=== PATIENT | female | born 2000 | race Caucasian/White ===

== ENCOUNTER 2023-01-18 10:41 | Emergency (ER) | payer BC, SELFPAY ==
[2023-01-18 10:50] VITALS: BP 138/86; PULSE 98; RESP 22; TEMP 36.8; O2SAT 100; BMI 44.8
--- NOTE | 2023-01-18 11:31 | EXP.UTC ---
Discharge Plan Disposition Patient Disposition: Home, Self-Care Condition: Good Prescriptions Prescriptions: New azithromycin [Zithromax Z-Ta] 250 mg tablet See Rx Instructions .ROUTE .COMPLEX 5 Days Qty: 6 0RF Rx Instructions: For 250 mg dose pack: take 500 mg today (day 1), then 250 mg for 4 days (days 2-5) methylprednisolone [Medrol (Ta)] 4 mg tablets,dose pack See Rx Instructions .Route .COMPLEX 6 Days Qty: 21 0RF Rx Instructions: taper pack; albuterol sulfate [Proventil HFA] 90 mcg/actuation HFA aerosol inhaler 1 - 2 inh inhalation Q6H PRN (Reason: shortness of breath or wheezing) Qty: 8.5 0RF No Action cetirizine-pseudoephedrine [Zyrtec-D] 5-120 mg Tablet Extended Release 12 Hr 1 tab PO DAILY Referrals Follow up/Referrals: Provider,Referral, MD [Primary Care Provider] - See instructions Activity Restrictions/Add. Instructions Additional Instructions/Restrictions: Start antibiotic today. Be sure to complete entire prescription even if feeling better Monitor temp. Tylenol every 4 hours as needed and / or ibuprofen every 6 hours as needed ( As long as your primary care physician has told you that it ok to take both. For fever/aches/pains ER if no less than 101 despite Tylenol or Motrin Humidifier/vaporizer or hot steamy shower Inhaler every 4-6 hours as needed like we discussed. If unsure how to use it, ask pharmacist to demonstrate how. Should help open airways and improve cough, wheezing, and shortness of breath *Start steroid today. Helps with inflammation therefore, cough and wheezing. Follow directions on the package. Reviewed side effects. Patient reports taking them before. Follow up IMMEDIATELY for new or worsening of symptoms OR no noticeable improvement over the next 48-72 hours. 911 immediately for any life threatening symptoms such as chest pain or difficulty breathing Clinical Impressions Clinical Impression: Sinusitis, Bronchitis Instructions Patient Instructions: DI for Sinusitis, Sinusitis, Acute Bronchitis Discharge ED Provider: Mary Pacheco [facility] [place] HPI General Stated complaint: Chest congestion, SOA Mode of Arrival: Ambulatory Source of Information: Patient Limitations: No Limitations Time Seen by Provider: 01/18/23 11:31 Description of Symptoms (Recalled from Triage Doc. by RN): PATIENT C/O SOA AND CHEST CONGESTION SINCE YESTERDAY HEENT Symptoms (Recalled from RN notes): No Resp Symptoms (Recalled from RN notes): Yes Skin Symptoms (Recalled from RN notes): No MS Symptoms (Recalled from RN notes): No Functional Status (Recalled from RN notes): WNL History of Present Illness Provider Complaint: Patient states that she has been having sinus pain and pressure for a couple weeks thought it was just allergies but now it is trying to move into her chest States that when she lays down she has drainage in the back of her throat and makes her cough States that at times she feels a little SOA after coughing like she cant get a good breath States that when she was younger she had an inhaler and not had to have it in awhile Related Data Home Medications Medication Instructions Recorded Confirmed cetirizine 5 mg-pseudoephedrine ER 1 tab PO DAILY Allergy symptoms 01/18/23 01/18/23 120 mg tablet,extended release,12hr (Zyrtec-D) Previous Rx's Medication Instructions Recorded albuterol sulfate 90 mcg/actuation 1 - 2 inh inhalation Q6H PRN 01/18/23 aerosol inhaler (Proventil HFA) shortness of breath or wheezing #8.5 grams azithromycin 250 mg tablet See Rx Instructions PO .COMPLEX 5 01/18/23 (Zithromax Z-Ta) days #6 tabs methylprednisolone 4 mg tablets in See Rx Instructions .Route 01/18/23 a dose pack (Medrol (Ta)) .COMPLEX 6 days #21 tabs Allergies Allergy/AdvReac Type Severity Reaction Status Date / Time No Known Allergies Allergy Verified 01/18/23 11:07 Worker's Comp Is t
[2023-01-18 11:43] LABS: UTC Pregnancy Test, Urine Negative (Negative)
[2023-01-18 11:48] VITALS: BP 138/86; PULSE 98; RESP 22; TEMP 36.8; O2SAT 100
== END 2023-01-18 11:53 | disposition home or self-care (01) ==
PROVIDERS: Emergency Provider Nurse Practitioner
DX: J01.90 Acute sinusitis, unspecified (principal); J20.9 Acute bronchitis, unspecified
CPT/HCPCS: 81025; 99204; 99212; G0463

== ENCOUNTER 2023-05-25 19:06 | Emergency (ER) | payer BC, SELFPAY ==
[2023-05-25 19:07] VITALS: BP 151/98; PULSE 90; RESP 18; TEMP 37; O2SAT 100; BMI 41.1
[2023-05-25 20:26] VITALS: BP 113/74; PULSE 97; O2SAT 100
[2023-05-25 21:18] LABS: Microscopic, Urine URINE MICROSCOPIC (MICROSCOPIC)
[2023-05-25 21:20] LABS: Appearance,Urine CLEAR (Clear); Bilirubin,Urine Negative (Negative); Blood, Urine 3+ (Negative); Color,Urine YELLOW (Yellow); Glucose,Urine (UA) Negative (Negative); Ketones,Urine Negative (Negative); Leukocyte Esterase,Urine Negative (Negative); Nitrate,Urine Negative (Negative); PH,Urine 5.5 (5.0-8.5); Protein,Urine Negative (Negative); Specific Gravity, Urine >= 1.030 (1.005-1.030); Urobilinogen,Urine 0.2 EU/dl (0.2)
[2023-05-25 21:32] LABS: Basophils # 0.1 K/mm3 (0-0.2); Basophils % 0.6 % (0.1-2.0); Eosinophils # 0.6 K/mm3 (0.0-0.4); Eosinophils % 5.1 % (0.1-12.0); Hematocrit 42.5 % (37.0-47.0); Hemoglobin 13.8 g/dL (12.2-16.2); Lymphocytes # 3.1 K/mm3 (0.7-4.5); Lymphocytes % 24.6 % (10-50); Mean Corpuscular HGB Conc 32.5 g/dL (31.8-35.4); Mean Corpuscular Hemoglobin 27.8 pg (27.0-31.2); Mean Corpuscular Volume 85.3 fl (81-99); Monocytes # 0.4 K/mm3 (0.1-1.0); Monocytes % 2.7 % (1.7-9.3); Neutrophils # 8.5 K/mm3 (1.8-7.8); Neutrophils % 66.9 % (37.0-80.0); Platelet Count 315 K/mm3 (142-424); Red Blood Count 4.98 M/mm3 (4.20-5.40); Red Cell Distribution Width 14.1 % (11.5-17.5); White Blood Count 12.6 K/mm3 (4.8-10.8)
[2023-05-25 21:38] LABS: RBC,Urine 20-50 #/hpf (0-3)
[2023-05-25 21:39] LABS: Bacteria,Urine Trace /lpf; Mucus,Urine Trace /lpf; WBC,Urine Occasional #/hpf (0-3)
[2023-05-25 21:42] LABS: Alanine Aminotransferase 37 U/L (12-78); Albumin Level 4.5 g/dl (3.5-5.0); Albumin/Globulin Ratio 1.4 (1.1-1.8); Alkaline Phosphatase 43 U/L (38-126); Anion Gap 11.7 mEq/L (5-15); Aspartate Amino Transferase 35 U/L (14-36); Bilirubin,Total 0.3 mg/dl (0.2-1.3); Blood Urea Nitrogen 7 mg/dl (7-17); Carbon Dioxide 24 mmol/L (22.0-30.0); Chloride 106 mmol/L (98-107); Creatinine Clearance Estimated 251 mL/min (50-200); Estimated Glomerular Filt Rate 124 ml/min (>60); GFR (African American) 150 ML/MIN (>60); Globulin 3.3 g/dL (1.3-3.2); Glucose 95 mg/dl (74-100); Potassium 3.7 mmoL/L (3.5-5.1); Sodium 138 mmol/L (136-145); Total Protein,Serum 7.8 g/dl (6.3-8.2)
[2023-05-25 22:00] LABS: HCG,Quantitative 496 mIU/ml (0-5.42)
[2023-05-25 22:14] LABS: Thyroid Stimulating Hormone 2.88 uIU/mL (0.465-4.68)
--- NOTE | 2023-05-25 23:19 | PC.NURSE ---
[facility] hospital[facility] at [facility] accepted pt. waiting on room assignment
--- NOTE | 2023-05-25 23:28 | PC.NURSE ---
made round nothing need
[2023-05-25 23:52] VITALS: BP 142/87; PULSE 100; RESP 18; TEMP 36.7; O2SAT 99
--- NOTE | 2023-05-25 23:53 | PC.NURSE ---
Patient states she started bleeding it was light pink, she called her OBGYN at [facility] who informed patient if the bleeding got redder in nature to come to local ER, patient states Sunday night it started getting redder, scant amounts only spotting at the moment. Patient stated she has an HCG with result of 460, has had previous miscarriages.
[2023-05-26 00:15] VITALS: BP 148/85; PULSE 92; RESP 15; TEMP 36.8
--- NOTE | 2023-05-26 00:22 | HMH.EDGENADL ---
Discharge Plan Disposition Patient Disposition: Home, Self-Care Condition: Good Prescriptions Prescriptions: New cephalexin 500 mg capsule 500 mg PO QID 5 Days Qty: 20 0RF No Action cetirizine-pseudoephedrine [Zyrtec-D] 5-120 mg Tablet Extended Release 12 Hr 1 tab PO DAILY azithromycin [Zithromax Z-Ta] 250 mg tablet See Rx Instructions .ROUTE .COMPLEX 5 Days Qty: 6 0RF Rx Instructions: For 250 mg dose pack: take 500 mg today (day 1), then 250 mg for 4 days (days 2-5) methylprednisolone [Medrol (Ta)] 4 mg tablets,dose pack See Rx Instructions .Route .COMPLEX 6 Days Qty: 21 0RF Rx Instructions: taper pack; albuterol sulfate [Proventil HFA] 90 mcg/actuation HFA aerosol inhaler 1 - 2 inh inhalation Q6H PRN (Reason: shortness of breath or wheezing) Qty: 8.5 0RF Referrals Follow up/Referrals: Provider,Referral, MD [Primary Care Provider] - See instructions Activity Restrictions/Add. Instructions Additional Instructions/Restrictions: Please take antibiotics as prescribed for asymptomatic bacteriuria. Please follow-up with your LIVE SOURCE OPERATOR as discussed. Please return to the emergency department if you develop any new or worsening symptoms become concerned for your health. Clinical Impressions Clinical Impression: Vaginal bleeding affecting early , Asymptomatic bacteriuria during in first trimester, UTI (urinary tract infection) Discharge ED Provider: Benny Nolasco Adult HPI General Chief complaint: Vaginal Bleeding Stated complaint: 5 weeks preg, bleeding Time Seen by Provider: 05/25/23 21:20 Mode of Arrival: Ambulatory Source of Information: Patient Limitations: No Limitations Description of Symptoms (Recalled from ER Triage Doc. by RN): pt is 4.5 wks and noticed spotting started last night, called obgyn today and was told if it got heavy or dark to go to ER. pt see OB at [facility], last hcg level was done yesterday, pt states spotting started out as light pink- brown-red. pt denies any issues with urination or fever History of Present Illness HPI narrative: 23-year-old female, history of prior miscarriage at 12 weeks, currently 4 weeks and 4 days presents with slight vaginal bleeding. She reports that she called her LIVE SOURCE OPERATOR earlier recommended coming in if the bleeding went from brown to bright red. She reports that the volume is minimal, it is not even showing up on a pad, is only present when she wipes. She reports very minimal intermittent abdominal cramping, no significant abdominal pain. She reports that she is Rh+ and does not need RhoGAM. She has been seen by her LIVE SOURCE OPERATOR for multiple beta-hCG's, her levels have been trending from 76--200ish, was 450 yesterday. Related Data Home Medications Medication Instructions Recorded Confirmed cetirizine 5 mg-pseudoephedrine ER 1 tab PO DAILY Allergy symptoms 01/18/23 01/18/23 120 mg tablet,extended release,12hr (Zyrtec-D) Previous Rx's Medication Instructions Recorded albuterol sulfate 90 mcg/actuation 1 - 2 inh inhalation Q6H PRN 01/18/23 aerosol inhaler (Proventil HFA) shortness of breath or wheezing #8.5 grams azithromycin 250 mg tablet See Rx Instructions PO .COMPLEX 5 01/18/23 (Zithromax Z-Ta) days #6 tabs methylprednisolone 4 mg tablets in See Rx Instructions .Route 01/18/23 a dose pack (Medrol (Ta)) .COMPLEX 6 days #21 tabs cephalexin 500 mg capsule 500 mg PO QID 5 days #20 caps 05/26/23 Allergies Allergy/AdvReac Type Severity Reaction Status Date / Time No Known Allergies Allergy Verified 01/18/23 11:07 [facility] Disclaimer: The information contained in this section may have been updated after the patient was seen, as this information can be updated by other users. Social History (Updated 01/18/23 @ 11:49 by Mary Pacheco APRN) Smoking Status: Never smoker alcohol intake: never current occupational status: employed Travel in the
--- NOTE | 2023-05-30 09:52 | PC.NURSE ---
Addendum entered by Vale Vega RN 05/30/23 09:53: no action needed per Dr. Mariano Original Note: notified dr. mariano of pt urine culture results- mixed urogenital jose antonio dr. mariano states is a contaminant
== END 2023-05-26 00:21 | disposition home or self-care (01) ==
PROVIDERS: Emergency Medicine; Emergency Provider Emergency Medicine
DX: O20.9 Hemorrhage in early pregnancy, unspecified (principal); O23.41 Unspecified infection of urinary tract in pregnancy, first trimester; B96.89 Other specified bacterial agents as the cause of diseases classified elsewhere; Z3A.01 Less than 8 weeks gestation of pregnancy; Z87.59 Personal history of other complications of pregnancy, childbirth and the puerperium
CPT/HCPCS: 36415; 80053; 81001; 84439; 84443; 84702; 85025; 86900; 86901; 87086; 99283